=== PATIENT | female | born 1965 ===

== ENCOUNTER 2021-11-03 17:43 | Inpatient (IN) | payer MEDICAID, OTHER, SELFPAY ==
[2021-11-03 17:51] VITALS: BP 141/76; BP 154/92; PULSE 69; PULSE 74; RESP 18; TEMP 36.8; O2SAT 97; BMI 33.2
--- NOTE | 2021-11-03 18:28 | ED.PSYCH ---
HPI - Psych General Chief Complaint: Psychiatric Symptoms Stated Complaint: CRISIS, SI Time Seen by Provider: 11/03/21 18:03 Source: patient and EMS Mode of arrival: EMS Limitations: no limitations History of Present Illness HPI Narrative: 56-year-old female history of anxiety, depression bipolar disorder here with reports of feeling anxious and depressed and suicidal with no plan today. Patient tells me she has a therapist. She does not have a psychiatrist. She tells me she has taken medications in the past but does not like them due to side effects and so she does not want to take medication. She denies any homicidal ideations or hallucinations. No substance use. No physical complaints. Related Data Allergies Allergy/AdvReac Type Severity Reaction Status Date / Time No Known Allergies Allergy Unverified 01/21/20 16:03 loratadine AdvReac Unknown leg Verified 10/16/17 00:00 numbness/heaviness Review of Systems Review of Systems: Yes all other systems are reviewed and are negative Constitutional: Constitutional: Reports no additional constitutional complaints, Denies body ache(s), Denies chills, Denies fever(s), Denies headache(s) and Denies weakness Eyes: Eyes: Reports no additional eye complaints and Denies change in vision ENT: Reports system reviewed and no additional complaints, except as documented, Denies dizziness, Denies headache(s), Denies nasal congestion, Denies nasal discharge and Denies neck pain Cardiovascular: Cardiovascular: Reports no additional cardiovascular complaints, Denies chest pain, Denies leg edema and Denies dyspnea Respiratory: Respiratory: Reports no additional respiratory complaints, Denies cough and Denies dyspnea Gastrointestinal: Gastrointestinal: Reports no additional gastrointestinal complaints, Denies abdominal pain, Denies diarrhea, Denies nausea and Denies vomiting Genitourinary: Genitourinary: Reports no additional female genitourinary complaints and Denies urinary incontinence Musculoskeletal: Musculoskeletal: Reports no additional musculoskeletal complaints, Denies back pain, Denies arthralgias, Denies joint swelling, Denies neck pain, Denies numbness and Denies tingling Integumentary/Breasts: Skin/Breast: Reports system reviewed and no additional complaints, except as docu and Denies rash Neurologic: Reports system reviewed and no additional complaints, except as documented, Denies Abnormal speech present, Denies dizziness, Denies headache(s), Denies numbness, Denies tingling and Denies weakness Psychiatric: Psychiatric: Reports anxiety, Reports depression and Reports suicidal ideation [facility] Past Medical History Attestation statement: The following information was validated with the patient. Source: old records reviewed and nursing notes reviewed Social History Social History Advance Directives: No Advance Directives Information Provided: No Physical Exam Vital Signs: Vital Signs: Last Vital Signs Temp 98.3 F 11/03/21 17:51 Pulse 74 11/03/21 17:51 Resp 18 11/03/21 17:51 BP 141/76 H 11/03/21 17:51 Pulse Ox 97 11/03/21 17:51 O2 Del Method 11/03/21 17:51 BMI result Body Mass Index 33.2 Const: General: cooperative, healthy appearing, comfortable and no acute distress Orientation/consciousness: patient oriented x3 Limitations: no limitations HEENT: Head: Yes normal to inspection Ears: hearing grossly normal bilaterally General nose exam: Normal external nose present Face and sinus: Yes normal facial exam Mouth: Normal oral and palatal mucosa present Throat: Yes posterior oropharynx normal Eyes: General: appearance normal, both eyes and all related structures Pupils: Equal, round and reactive pupils present Neck: Neck: Yes normal visual inspection Chest: Chest palpation & inspection: normal inspection of the chest Resp: Effort & Inspection: normal respiratory effort Auscultation: clear to auscultation bilaterally Cardio: Rate: regular rate Rhythm: regular rhythm Peripheral pulses: Peripheral pulses 2+ throughout GI: Inspection: Yes normal to inspection Palpation (GI): Soft to palpation and nontender Auscultation: normal bowel sounds Back/Spine/Pelvis: Thoracic/Lumbar Spine: thoracic and lumbar spine normal to inspection Skin: General skin exam: no rashes or lesions noted Neuro: General: patient oriented x3, no focal motor deficits and normal sensation to monofilament Cranial nerves: Yes CN's II-XII intact bilaterally and Yes Equal, round and reactive pupils present Cognition (Neuro): normal cognition Speech: No Abnormal speech present Gait exam (Neuro): Normal gait present Motor exam (neuro): 5/5 motor strength present throughout Extrem: General: Yes normal to inspection Course Course Course Narrative: reviewed labs which are unremarkable. Patient has no physical complaints. Plan is for inpatient bed search. Reevaluation(s) Reevaluation #1: patient is voluntary inpatient bed search. Placed in physician observation pending disposition MDM - Psych MDM Narrative Medical decision making narrative: 56-year-old female with a longstanding history of mental health not currently on any medications here with reports of anxiety, depression and suicidal thoughts with no plan. No physical complaints. No concern for acute ingestion or trauma. Will check labs, drug screen, COVID screen. Once medically cleared will need a crisis evaluation Medical Records Attestation: I reviewed the patient's medical records. Lab Data Attestation: I reviewed the patient's lab results. Result diagrams: 11/03/21 19:21 11/03/21 19:21 Labs: Lab Results 11/03/21 11/03/21 11/03/21 Range/Units 19:03 19:03 19:21 WBC 7.2 (4.8-10.8) X10*3/uL RBC 4.86 (4.20-5.50) X10*6/uL Hgb 13.3 (12.0-16.0) g/dl Hct 40.7 (37.0-47.0) % MCV 83.7 (80.0-98.0) fL MCH 27.4 (27.0-33.0) pg MCHC 32.7 (31.0-35.0) g/dl RDW 13.9 (11.0-16.0) % Plt Count 260 (160-400) X10*3/uL MPV 9.2 L (9.4-12.3) fL Immature Gran % (Auto) 0.1 (0.0-0.4) % Neut % (Auto) 66.9 (45-73) % Lymph % (Auto) 26.5 (20-40) % [place] % (Auto) 5.4 (2-11) % Eos % (Auto) 0.7 (0-4) % Baso % (Auto) 0.4 (0-2) % Lymph # (Auto) 1.9 (1.2-4.9) X10*3/uL [place] # (Auto) 0.4 (0.1-1.2) X10*3/uL Eos # (Auto) 0.1 (0.0-0.4) X10*3/uL Baso # (Auto) 0.0 (0.0-0.2) X10*3/uL Abs Immat Gran (auto) 0.01 (0.00-0.03) X10*3/uL Absolute Neuts (auto) 4.8 (2.0-8.3) x10*3/uL Absolute Nucleated RBC 0.000 (0.0-0.012) X10*3/uL Nucleated RBC % (auto) 0.0 (0.0-0.2) /100WBC Sodium (135-145) mmol/L Potassium (3.3-5.1) mmol/L Chloride (96-108) mmol/L Carbon Dioxide (22-29) mmol/L Anion Gap (12-20) BUN (9-16) mg/dL Creatinine (0.5-1.4) mg/dL Estim Creat Clear Calc Estimated GFR Random Glucose (60-115) mg/dL Calcium (8.4-10.2) mg/dL Total Bilirubin (0.0-1.0) mg/dL Direct Bilirubin (0.0-0.5) mg/dL AST (5-31) U/L ALT (0-31) U/L Alkaline Phosphatase (39-117) U/L Total Protein (6.5-8.0) g/dL Albumin (3.5-5.0) g/dL Urine Color YELLOW Urine Appearance HAZY Urine pH 6.0 (5.0-8.0) Ur Specific [place] >= 1.030 H (1.005-1.025) Urine Protein 3+ H (NEG-TRACE) MG/DL Urine Glucose (UA) NEG (NEG) MG/DL Urine Ketones 5 (NEG) MG/DL Urine Blood TRACE (NEG) Urine Nitrite NEG (NEG) Ur Leukocyte Esterase NEG (NEG) Urine RBC 1-4 (0) /HPF Urine WBC 0-2 (0-4) /HPF Ur Squamous Epith Cells 3+ /LPF Urine Bacteria TRACE /LPF Hyaline Casts 0-2 /LPF Urine Mucus 3+ /LPF Salicylates (15-30) mg/dL Urine Opiates Screen Not Detected (Not Detect) Urine Fentanyl Screen Not Detected (Not Detect) Acetaminophen (<30) mcg/mL Ur Barbiturates Screen Not Detected (Not Detect) Ur Phencyclidine Scrn Not Detected (Not Detect) Ur Amphetamines Screen Not Detected (Not Detect) U Benzodiazepines Scrn Not Detected (Not Detect) Urine Cocaine Screen Not Detected (Not Detect) U Marijuana (THC) Screen POSITIVE H (Not Detect) Ethyl Alcohol mg/dL COVID-19 ([facility]) (Negative) COVID-19 Clin [facility] 11/03/21 11/03/21 Range/Units 19:21 19:21 WBC (4.8-10.8) X10*3/uL RBC (4.20-5.50) X10*6/uL Hgb (12.0-16.0) g/dl Hct (37.0-47.0) % MCV (80.0-98.0) fL MCH (27.0-33.0) pg MCHC (31.0-35.0) g/dl RDW (11.0-16.0) % Plt Count (160-400) X10*3/uL MPV (9.4-12.3) fL Immature Gran % (Auto) (0.0-0.4) % Neut % (Auto) (45-73) % Lymph % (Auto) (20-40) % [place] % (Auto) (2-11) % Eos % (Auto) (0-4) % Baso % (Auto) (0-2) % Lymph # (Auto) (1.2-4.9) X10*3/uL [place] # (Auto) (0.1-1.2) X10*3/uL Eos # (Auto) (0.0-0.4) X10*3/uL Baso # (Auto) (0.0-0.2) X10*3/uL Abs Immat Gran (auto) (0.00-0.03) X10*3/uL Absolute Neuts (auto) (2.0-8.3) x10*3/uL Absolute Nucleated RBC (0.0-0.012) X10*3/uL Nucleated RBC % (auto) (0.0-0.2) /100WBC Sodium 143 (135-145) mmol/L Potassium 4.0 (3.3-5.1) mmol/L Chloride 108 (96-108) mmol/L Carbon Dioxide 25 (22-29) mmol/L Anion Gap 14 (12-20) BUN 14 (9-16) mg/dL Creatinine 0.74 (0.5-1.4) mg/dL Estim Creat Clear Calc 78.8 Estimated GFR > 60 Random Glucose 93 (60-115) mg/dL Calcium 9.1 (8.4-10.2) mg/dL Total Bilirubin 0.4 (0.0-1.0) mg/dL Direct Bilirubin 0.2 (0.0-0.5) mg/dL AST 24 (5-31) U/L ALT 27 (0-31) U/L Alkaline Phosphatase 130 H (39-117) U/L Total Protein 7.2 (6.5-8.0) g/dL Albumin 4.3 (3.5-5.0) g/dL Urine Color Urine Appearance Urine pH (5.0-8.0) Ur Specific [place] (1.005-1.025) Urine Protein (NEG-TRACE) MG/DL Urine Glucose (UA) (NEG) MG/DL Urine Ketones (NEG) MG/DL Urine Blood (NEG) Urine Nitrite (NEG) Ur Leukocyte Esterase (NEG) Urine RBC (0) /HPF Urine WBC (0-4) /HPF Ur Squamous Epith Cells /LPF Urine Bacteria /LPF Hyaline Casts /LPF Urine Mucus /LPF Salicylates < 5.0 L (15-30) mg/dL Urine Opiates Screen (Not Detect) Urine Fentanyl Screen (Not Detect) Acetaminophen < 1 (<30) mcg/mL Ur Barbiturates Screen (Not Detect) Ur Phencyclidine Scrn (Not Detect) Ur Amphetamines Screen (Not Detect) U Benzodiazepines Scrn (Not Detect) Urine Cocaine Screen (Not Detect) U Marijuana (THC) Screen (Not Detect) Ethyl Alcohol < 10 mg/dL COVID-19 ([facility]) Negative (Negative) COVID-19 Clin Com See Note Discharge Plan Discharge Clinical Impression: Depression Patient Disposition: Admitted As Inpatient
[2021-11-03 19:16] LABS: Appearance Urine HAZY; Color Urine YELLOW; Glucose Urine UA NEG (NEG); Leukocyte Esterase Urine NEG (NEG); Nitrite Urine NEG (NEG); Specific Gravity - Urine >= 1.030 (1.005-1.025); Urine Blood TRACE (NEG); Urine Ketones 5 MG/DL (NEG); Urine Protein 3+ MG/DL (NEG-TRACE)
[2021-11-03 19:21] LABS: Amphetamine Screen Urine Not Detected (Not Detect); Barbiturates, Urine Not Detected (Not Detect); Benzodiazepines Screen Urine Not Detected (Not Detect); Cannabinoid Screen Urine POSITIVE (Not Detect); Cocaine Screen Urine Not Detected (Not Detect); Fentanyl, urine Not Detected (Not Detect); Opiate Screen Urine Not Detected (Not Detect); Phencyclidine Screen Urine Not Detected (Not Detect)
[2021-11-03 19:22] LABS: Bacteria Urine TRACE /LPF; Hyaline Casts Urine 0-2 /LPF; Mucus Urine 3+ /LPF; Squamous Epithelial Cell Urine 3+ /LPF; WBC Urine 0-2 /HPF (0-4)
[2021-11-03 19:26] LABS: MANUAL DIFF FLAG NO
[2021-11-03 19:28] LABS: Basophils Percent Auto 0.4 % (0-2); Eosinophils Absolute Auto 0.1 X10*3/uL (0.0-0.4); Eosinophils Percent Auto 0.7 % (0-4); Hematocrit 40.7 % (37.0-47.0); Hemoglobin 13.3 g/dl (12.0-16.0); Imm Gran Abs Auto 0.01 X10*3/uL (0.00-0.03); Imm Gran Pct Auto 0.1 % (0.0-0.4); Lymphocytes Absolute Auto 1.9 X10*3/uL (1.2-4.9); Lymphocytes Percent Auto 26.5 % (20-40); Mean Corpuscular HGB Conc 32.7 g/dl (31.0-35.0); Mean Corpuscular Hemoglobin 27.4 pg (27.0-33.0); Mean Corpuscular Volume 83.7 fL (80.0-98.0); Mean Platelet Volume 9.2 fL (9.4-12.3); Monocytes Absolute Auto 0.4 X10*3/uL (0.1-1.2); Monocytes Percent Auto 5.4 % (2-11); Neutrophils Absolute Auto 4.8 x10*3/uL (2.0-8.3); Neutrophils Percent Auto 66.9 % (45-73); Platelet Count 260 X10*3/uL (160-400); Red Blood Count 4.86 X10*6/uL (4.20-5.50); Red Cell Distribution Width 13.9 % (11.0-16.0); White Blood Count 7.2 X10*3/uL (4.8-10.8)
[2021-11-03 19:45] LABS: COVID-19 Test Negative (Negative)
[2021-11-03 19:46] LABS: Acetaminophen LAB < 1 mcg/mL (<30); Alanine Aminotransferase 27 U/L (0-31); Albumin Level 4.3 g/dL (3.5-5.0); Alkaline Phosphatase 130 U/L (39-117); Anion Gap 14 (12-20); Aspartate Amino Transferase 24 U/L (5-31); Bilirubin Direct 0.2 mg/dL (0.0-0.5); Bilirubin Total 0.4 mg/dL (0.0-1.0); Blood Urea Nitrogen 14 mg/dL (9-16); Calcium 9.1 mg/dL (8.4-10.2); Carbon Dioxide 25 mmol/L (22-29); Chloride 108 mmol/L (96-108); Creatinine Clr Calc Pharmacy 78.8; Estimated Glomerular Filt Rate > 60; Ethanol < 10 mg/dL; Glucose Random 93 mg/dL (60-115); Salicylate < 5.0 mg/dL (15-30); Sodium 143 mmol/L (135-145); Total Protein 7.2 g/dL (6.5-8.0)
--- NOTE | 2021-11-04 | ECG_ITS ---
Test Reason : MEDICAL CLEAR Blood Pressure : / mmHG Vent. Rate : 055 BPM Atrial Rate : 055 BPM P-R Int : 150 ms QRS Dur : 100 ms QT Int : 464 ms P-R-T Axes : 031 041 022 degrees QTc Int : 443 ms Sinus bradycardia Minimal voltage criteria for LVH, may be normal variant ( [place] product ) Possible Inferior infarct (cited on or before 14-DEC-2009) Abnormal ECG When compared with ECG of 14-DEC-2009 02:00, No significant change was found Referred By: Annika Mcwilliams Electronically Signed By:BRANDON AMBROSIO
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
[2021-11-04 06:00] VITALS: BP 127/77; PULSE 59; TEMP 36.4; O2SAT 97
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
--- NOTE | 2021-11-04 17:44 | PC.NURSE ---
Pt signed a [address] Devin Snow and Jen Mckeon notified.
[2021-11-04 18:00] VITALS: BP 119/82; PULSE 89; RESP 16; TEMP 36.6; O2SAT 98
[2021-11-05 06:00] VITALS: BP 121/60; PULSE 58; TEMP 36.8; O2SAT 97
[2021-11-05 08:21] LABS: Cholesterol 232 mg/dL; HDL Cholesterol 46 mg/dL; LDL Cholesterol Calculated 133 mg/dl; Triglycerides 267 mg/dL
[2021-11-05 08:42] LABS: Free T4 (Free Thyroxine) 0.99 ng/dL (0.71-1.85)
[2021-11-05 08:46] LABS: Estimated Average Glucose 117 mg/dL; Hemoglobin A1c % 5.7 %
--- NOTE | 2021-11-05 12:02 | P.PNPSI_ITS ---
Subjective Subjective Date of Service: 11/05/21 Reason For Visit: depression, SI Subjective Notes: 3 Day Interim History: Reports today still feeling depressed and anxious at times. Still reports main stressors are family in nature. Is concerned regarding her pet dog. Aware of three-day notice process. A bit regarding medications and prefers not to start same currently. Denies SI today. No hallucinations. Sleep okay. Encouraging to spend time in the milieu. Side effects from medications: No Attending Groups: No Review of Systems Acute medical concerns: No Mental Status Exam Mental Status Exam Narrative: Hospital clothing. Pleasant. Self-care okay. Depressed. Denies current SI. Does feel hopeless and helpless and overwhelmed. No psychosis. No agitation or HI. Insight judgment okay Diagnostics Vital Signs (24Hr): Vital Signs - 24 hr 11/04/21 18:00 11/05/21 06:00 Temperature 97.8 F 98.3 F Pulse Rate 89 58 Respiratory Rate 16 Blood Pressure 119/82 121/60 Pulse Oximetry 98 97 Oxygen Delivery Method Room Air Room Air BMI result Body Mass Index 33.2 Labs Results: 11/03/21 19:21 11/03/21 19:21 Labs: Laboratory Results - last 48 hr 11/03/21 11/03/21 11/03/21 19:03 19:03 19:21 WBC 7.2 RBC 4.86 Hgb 13.3 Hct 40.7 MCV 83.7 MCH 27.4 MCHC 32.7 RDW 13.9 Plt Count 260 MPV 9.2 L Immature Gran % (Auto) 0.1 Neut % (Auto) 66.9 Lymph % (Auto) 26.5 [place] % (Auto) 5.4 Eos % (Auto) 0.7 Baso % (Auto) 0.4 Lymph # (Auto) 1.9 [place] # (Auto) 0.4 Eos # (Auto) 0.1 Baso # (Auto) 0.0 Abs Immat Gran (auto) 0.01 Absolute Neuts (auto) 4.8 Absolute Nucleated RBC 0.000 Nucleated RBC % (auto) 0.0 Sodium Potassium Chloride Carbon Dioxide Anion Gap BUN Creatinine Estim Creat Clear Calc Estimated GFR Random Glucose Estimat Average Glucose Hemoglobin A1c % Calcium Magnesium Total Bilirubin Direct Bilirubin AST ALT Alkaline Phosphatase Total Protein Albumin Triglycerides Cholesterol LDL Cholesterol, Calc HDL Cholesterol TSH Free T4 Urine Color YELLOW Urine Appearance HAZY Urine pH 6.0 Ur Specific [place] >= 1.030 H Urine Protein 3+ H Urine Glucose (UA) NEG Urine Ketones 5 Urine Blood TRACE Urine Nitrite NEG Ur Leukocyte Esterase NEG Urine RBC 1-4 Urine WBC 0-2 Ur Squamous Epith Cells 3+ Urine Bacteria TRACE Hyaline Casts 0-2 Urine Mucus 3+ Salicylates Urine Opiates Screen Not Detected Urine Fentanyl Screen Not Detected Acetaminophen Ur Barbiturates Screen Not Detected Ur Phencyclidine Scrn Not Detected Ur Amphetamines Screen Not Detected U Benzodiazepines Scrn Not Detected Urine Cocaine Screen Not Detected U Marijuana (THC) Screen POSITIVE H Ethyl Alcohol COVID-19 ([facility]) COVID-19 [facility] Com 11/03/21 11/03/21 11/05/21 19:21 19:21 07:49 WBC RBC Hgb Hct MCV MCH MCHC RDW Plt Count MPV Immature Gran % (Auto) Neut % (Auto) Lymph % (Auto) [place] % (Auto) Eos % (Auto) Baso % (Auto) Lymph # (Auto) [place] # (Auto) Eos # (Auto) Baso # (Auto) Abs Immat Gran (auto) Absolute Neuts (auto) Absolute Nucleated RBC Nucleated RBC % (auto) Sodium 143 Potassium 4.0 Chloride 108 Carbon Dioxide 25 Anion Gap 14 BUN 14 Creatinine 0.74 Estim Creat Clear Calc 78.8 Estimated GFR > 60 Random Glucose 93 Estimat Average Glucose 117 Hemoglobin A1c % 5.7 Calcium 9.1 Magnesium Total Bilirubin 0.4 Direct Bilirubin 0.2 AST 24 ALT 27 Alkaline Phosphatase 130 H Total Protein 7.2 Albumin 4.3 Triglycerides Cholesterol LDL Cholesterol, Calc HDL Cholesterol TSH Free T4 Urine Color Urine Appearance Urine pH Ur Specific [place] Urine Protein Urine Glucose (UA) Urine Ketones Urine Blood Urine Nitrite Ur Leukocyte Esterase Urine RBC Urine WBC Ur Squamous Epith Cells Urine Bacteria Hyaline Casts Urine Mucus Salicylates < 5.0 L Urine Opiates Screen Urine Fentanyl Screen Acetaminophen < 1 Ur Barbiturates Screen Ur Phencyclidine Scrn Ur Amphetamines Screen U Benzodiazepines Scrn Urine Cocaine Screen U Marijuana (THC) Screen Ethyl Alcohol < 10 COVID-19 ([facility]) Negative COVID-19 Clin Com See Note 11/05/21 07:49 WBC RBC Hgb Hct MCV MCH MCHC RDW Plt Count MPV Immature Gran % (Auto) Neut % (Auto) Lymph % (Auto) [place] % (Auto) Eos % (Auto) Baso % (Auto) Lymph # (Auto) [place] # (Auto) Eos # (Auto) Baso # (Auto) Abs Immat Gran (auto) Absolute Neuts (auto) Absolute Nucleated RBC Nucleated RBC % (auto) Sodium Potassium Chloride Carbon Dioxide Anion Gap BUN Creatinine Estim Creat Clear Calc Estimated GFR Random Glucose Estimat Average Glucose Hemoglobin A1c % Calcium Magnesium 2.0 Total Bilirubin Direct Bilirubin AST ALT Alkaline Phosphatase Total Protein Albumin Triglycerides 267 Cholesterol 232 LDL Cholesterol, Calc 133 HDL Cholesterol 46 TSH 0.70 Free T4 0.99 Urine Color Urine Appearance Urine pH Ur Specific [place] Urine Protein Urine Glucose (UA) Urine Ketones Urine Blood Urine Nitrite Ur Leukocyte Esterase Urine RBC Urine WBC Ur Squamous Epith Cells Urine Bacteria Hyaline Casts Urine Mucus Salicylates Urine Opiates Screen Urine Fentanyl Screen Acetaminophen Ur Barbiturates Screen Ur Phencyclidine Scrn Ur Amphetamines Screen U Benzodiazepines Scrn Urine Cocaine Screen U Marijuana (THC) Screen Ethyl Alcohol COVID-19 ([facility]) COVID-19 Clin Com Medications Medications Current Medications Acetaminophen (Acetaminophen 325 Mg Tablet) 650 mg PO Q6H PRN PRN Reason: Headache/Pain Mild Scale (1-3) Al Hydroxide/Mg Hydroxide (Magnesium Hydrox/Alum Hydrox 30 Ml Oral.Susp) 30 ml PO Q6H PRN PRN Reason: Heartburn/Nausea Hydroxyzine HCl (Hydroxyzine Hcl 25 Mg Tablet) 25 mg PO Q6H PRN PRN Reason: Anxiety Magnesium Hydroxide (Milk Of Magnesia 30 Ml Oral.Susp) 30 ml PO DAILY PRN PRN Reason: Constipation Pharmacy Consult (Consult Rx Perform Med Rec) 1 each MISCELLANE ONCE PRN PRN Reason: Consult order Trazodone HCl (Trazodone Hcl 50 Mg Tablet) 50 mg PO BEDTIME PRN PRN Reason: Insomnia Allergies Allergies Allergy/AdvReac Type Severity Reaction Status Date / Time No Known Allergies Allergy Unverified 01/21/20 16:03 loratadine AdvReac Unknown leg Verified 10/16/17 00:00 numbness/heaviness Assessment & Plan Assessment & Plan (1) Major depression: Status: Acute Code(s): F32.9 - Major depressive disorder, single episode, unspecified Assessment and Plan: Presents with major depressive disorder with recent SI. Also psychosocial stressors. Has a therapist. Very reluctant regarding medications. Is open to considering Zoloft. 11/05/2021: Prefers not to start medications currently. Encouraging to spend time in the milieu and groups. Three day notice submitted. I spent minutes with the patient and/or on the patient floor today, greater than?50% of which was spent counseling/coordinating care. Reason for contiued inpatient stay Substantial Risk for: harm to self
[2021-11-05 18:00] VITALS: BP 128/82; PULSE 91; RESP 16; TEMP 36.8; O2SAT 99
[2021-11-06 09:40] VITALS: BP 127/58; PULSE 55; RESP 18; TEMP 37.2; O2SAT 97
--- NOTE | 2021-11-06 13:25 | PM.PSYDC ---
DS: Providers Provider Date of Service: 11/06/21 Date of admission: 11/04/21 01:35 Date of discharge: 11/06/21 Primary care physician: Unknown Physician DS: Diagnosis Discharge Diagnosis (1) Major depression: Status: Acute DS: Medications Discharge Medications Home Medications: Home Medications Medication Instructions Recorded Confirmed No Known Home Meds 11/03/21 11/03/21 Mental Status Exam Mental Status Exam Narrative: Hospital clothing. Pleasant. Self-care okay. Less depressed. Denies current SI. Less hopeless and overhwlemed. No psychosis. No agitation or HI. Insight judgment okay Data Data Completed and Pending Completed studies during hospitalization [Text1]: 11/03/21 11/03/21 11/03/21 19:03 19:03 19:21 WBC 7.2 RBC 4.86 Hgb 13.3 Hct 40.7 MCV 83.7 MCH 27.4 MCHC 32.7 RDW 13.9 Plt Count 260 MPV 9.2 L Immature Gran % (Auto) 0.1 Neut % (Auto) 66.9 Lymph % (Auto) 26.5 [place] % (Auto) 5.4 Eos % (Auto) 0.7 Baso % (Auto) 0.4 Lymph # (Auto) 1.9 [place] # (Auto) 0.4 Eos # (Auto) 0.1 Baso # (Auto) 0.0 Abs Immat Gran (auto) 0.01 Absolute Neuts (auto) 4.8 Absolute Nucleated RBC 0.000 Nucleated RBC % (auto) 0.0 Sodium Potassium Chloride Carbon Dioxide Anion Gap BUN Creatinine Estim Creat Clear Calc Estimated GFR Random Glucose Estimat Average Glucose Hemoglobin A1c % Calcium Magnesium Total Bilirubin Direct Bilirubin AST ALT Alkaline Phosphatase Total Protein Albumin Triglycerides Cholesterol LDL Cholesterol, Calc HDL Cholesterol Vitamin B12 Folate TSH Free T4 Urine Color YELLOW Urine Appearance HAZY Urine pH 6.0 Ur Specific [place] >= 1.030 H Urine Protein 3+ H Urine Glucose (UA) NEG Urine Ketones 5 Urine Blood TRACE Urine Nitrite NEG Ur Leukocyte Esterase NEG Urine RBC 1-4 Urine WBC 0-2 Ur Squamous Epith Cells 3+ Urine Bacteria TRACE Hyaline Casts 0-2 Urine Mucus 3+ Salicylates Urine Opiates Screen Not Detected Urine Fentanyl Screen Not Detected Acetaminophen Ur Barbiturates Screen Not Detected Ur Phencyclidine Scrn Not Detected Ur Amphetamines Screen Not Detected U Benzodiazepines Scrn Not Detected Urine Cocaine Screen Not Detected U Marijuana (THC) Screen POSITIVE H Ethyl Alcohol COVID-19 ([facility]) COVID-19 Clin Com 11/03/21 11/03/21 11/05/21 19:21 19:21 07:49 WBC RBC Hgb Hct MCV MCH MCHC RDW Plt Count MPV Immature Gran % (Auto) Neut % (Auto) Lymph % (Auto) [place] % (Auto) Eos % (Auto) Baso % (Auto) Lymph # (Auto) [place] # (Auto) Eos # (Auto) Baso # (Auto) Abs Immat Gran (auto) Absolute Neuts (auto) Absolute Nucleated RBC Nucleated RBC % (auto) Sodium 143 Potassium 4.0 Chloride 108 Carbon Dioxide 25 Anion Gap 14 BUN 14 Creatinine 0.74 Estim Creat Clear Calc 78.8 Estimated GFR > 60 Random Glucose 93 Estimat Average Glucose 117 Hemoglobin A1c % 5.7 Calcium 9.1 Magnesium Total Bilirubin 0.4 Direct Bilirubin 0.2 AST 24 ALT 27 Alkaline Phosphatase 130 H Total Protein 7.2 Albumin 4.3 Triglycerides Cholesterol LDL Cholesterol, Calc HDL Cholesterol Vitamin B12 Folate TSH Free T4 Urine Color Urine Appearance Urine pH Ur Specific [place] Urine Protein Urine Glucose (UA) Urine Ketones Urine Blood Urine Nitrite Ur Leukocyte Esterase Urine RBC Urine WBC Ur Squamous Epith Cells Urine Bacteria Hyaline Casts Urine Mucus Salicylates < 5.0 L Urine Opiates Screen Urine Fentanyl Screen Acetaminophen < 1 Ur Barbiturates Screen Ur Phencyclidine Scrn Ur Amphetamines Screen U Benzodiazepines Scrn Urine Cocaine Screen U Marijuana (THC) Screen Ethyl Alcohol < 10 COVID-19 ([facility]) Negative COVID-19 Clin Com See Note 11/05/21 11/05/21 07:49 07:49 WBC RBC Hgb Hct MCV MCH MCHC RDW Plt Count MPV Immature Gran % (Auto) Neut % (Auto) Lymph % (Auto) [place] % (Auto) Eos % (Auto) Baso % (Auto) Lymph # (Auto) [place] # (Auto) Eos # (Auto) Baso # (Auto) Abs Immat Gran (auto) Absolute Neuts (auto) Absolute Nucleated RBC Nucleated RBC % (auto) Sodium Potassium Chloride Carbon Dioxide Anion Gap BUN Creatinine Estim Creat Clear Calc Estimated GFR Random Glucose Estimat Average Glucose Hemoglobin A1c % Calcium Magnesium 2.0 Total Bilirubin Direct Bilirubin AST ALT Alkaline Phosphatase Total Protein Albumin Triglycerides 267 Cholesterol 232 LDL Cholesterol, Calc 133 HDL Cholesterol 46 Vitamin B12 Pending Folate Pending TSH 0.70 Free T4 0.99 Urine Color Urine Appearance Urine pH Ur Specific [place] Urine Protein Urine Glucose (UA) Urine Ketones Urine Blood Urine Nitrite Ur Leukocyte Esterase Urine RBC Urine WBC Ur Squamous Epith Cells Urine Bacteria Hyaline Casts Urine Mucus Salicylates Urine Opiates Screen Urine Fentanyl Screen Acetaminophen Ur Barbiturates Screen Ur Phencyclidine Scrn Ur Amphetamines Screen U Benzodiazepines Scrn Urine Cocaine Screen U Marijuana (THC) Screen Ethyl Alcohol COVID-19 ([facility]) COVID-19 Clin Com DS: Summary Hospital Course Hospital Course: Much less depressed and anxious, with main stressors are family in nature.? Gradually engaged in milieu more and preferred talking over medications, so no meds started. Eager fro DC and 3 day notice submitted and no grounds for involuntary retention. Already has an established therapist in the community. Status at Discharge Functional status at discharge: independent ambulation Overall status at discharge: patient is back to baseline Time Spent with Patient Time attestation: Total time spent providing and/or coordinating discharge services: Time spent: Less than 30 minutes Discharge Plan Discharge Patient Disposition: Home, Self-Care Discharge Diagnosis: depression Referrals: CHASE NORMAN, THERAPIST [Other] - 1 Week (PLEASE CALL FOR NEXT APPOINTMENT) Physician,Unknown J [Primary Care Provider] - 1 Week Discharge Medications: No Action No Known Home Meds Discharge Orders: Discharge Order (Routine); Ordered 11/06/21 Ordered By: Devin Snow Diet: Regular diet Activity on Discharge: No Restrictions Stand Alone Forms: Patient Portal Discharge page Care Plan Goals: continue therapy Health Concerns: none Plan of Treatment: continue therapy Assessment: stable for discharge
--- NOTE | 2021-11-06 14:29 | PC.ADMIT ---
Pt verbalized understanding of discharge instructions and follow up. NAD noted on dispo. Pt denies si,hi at time of discharge.
[2021-11-07 06:27] LABS: Folate 15.1 ng/mL (> or = 4.0); Vitamin B12 566 pg/mL (200-900)
== END 2021-11-06 14:28 | disposition home or self-care (01) | DRG 754 ==
LOC: HO.ED 20:20 → HO.PM5 11-04 01:53
PROVIDERS: Nurse Practitioner Family; Registered Nurse; Admitting Provider Psychiatry & Neurology Psychiatry; Emergency Provider Emergency Medicine; Visit Provider Psychiatry & Neurology Psychiatry
DX: F32.9 Major depressive disorder, single episode, unspecified (principal); R45.851 Suicidal ideations; Z20.822 Contact with and (suspected) exposure to COVID-19
CPT/HCPCS: 36415; 80048; 80061; 80076; 80143; 80179; 80307; 81001; 82077; 82607; 82746; 83036; 83735; 84439; 84443; 85025; 87635; 93005; 99285

== ENCOUNTER 2023-08-15 14:49 | Outpatient (REF) | payer MEDICAID, SELFPAY ==
--- NOTE | ~2023-08-15 | XR_ITS ---
EXAMINATION: BILATERAL HANDS AND LEFT SHOULDER CLINICAL INFORMATION: Bilateral hand pain and swelling along with left shoulder pain COMPARISON: Left shoulder and bilateral hands 10/24/2015 TECHNIQUE: 5 views left shoulder, 3 views each hand FINDINGS: Left shoulder: Some mild degenerative changes are seen at the greater tuberosity with some osteophyte formation. Minimal degenerative changes are seen at the AC joint. Both of these findings have progressed slightly since 2016. The glenohumeral joint appears normal. No fractures or subluxations. Right hand: Compared with the 2016 study there's been marked progression of degenerative changes with new marked changes seen at the first CMC joint and progression of disease at all of the DIP joints most marked in the second and third digits. No fractures, subluxations or chondrocalcinosis. Left hand: There are mild to moderate degenerative changes seen at the first CMC joint, new when compared to the 2016 study. There is been marked progression of arthritic changes seen at the DIP joints, most marked in the second digit with exuberant osteophytes and some periarticular calcification. No acute fractures or subluxations. XR/XR shoulder LT min 2V IMPRESSION: 1. Mild degenerative changes left shoulder. 2. Marked progression of degenerative changes in both hands as described above.
--- NOTE | ~2023-08-15 | XR_ITS ---
EXAMINATION: BILATERAL HANDS AND LEFT SHOULDER CLINICAL INFORMATION: Bilateral hand pain and swelling along with left shoulder pain COMPARISON: Left shoulder and bilateral hands 10/24/2015 TECHNIQUE: 5 views left shoulder, 3 views each hand FINDINGS: Left shoulder: Some mild degenerative changes are seen at the greater tuberosity with some osteophyte formation. Minimal degenerative changes are seen at the AC joint. Both of these findings have progressed slightly since 2016. The glenohumeral joint appears normal. No fractures or subluxations. Right hand: Compared with the 2016 study there's been marked progression of degenerative changes with new marked changes seen at the first CMC joint and progression of disease at all of the DIP joints most marked in the second and third digits. No fractures, subluxations or chondrocalcinosis. Left hand: There are mild to moderate degenerative changes seen at the first CMC joint, new when compared to the 2016 study. There is been marked progression of arthritic changes seen at the DIP joints, most marked in the second digit with exuberant osteophytes and some periarticular calcification. No acute fractures or subluxations. XR/XR hand LT min 3V IMPRESSION: 1. Mild degenerative changes left shoulder. 2. Marked progression of degenerative changes in both hands as described above.
--- NOTE | ~2023-08-15 | XR_ITS ---
EXAMINATION: BILATERAL HANDS AND LEFT SHOULDER CLINICAL INFORMATION: Bilateral hand pain and swelling along with left shoulder pain COMPARISON: Left shoulder and bilateral hands 10/24/2015 TECHNIQUE: 5 views left shoulder, 3 views each hand FINDINGS: Left shoulder: Some mild degenerative changes are seen at the greater tuberosity with some osteophyte formation. Minimal degenerative changes are seen at the AC joint. Both of these findings have progressed slightly since 2016. The glenohumeral joint appears normal. No fractures or subluxations. Right hand: Compared with the 2016 study there's been marked progression of degenerative changes with new marked changes seen at the first CMC joint and progression of disease at all of the DIP joints most marked in the second and third digits. No fractures, subluxations or chondrocalcinosis. Left hand: There are mild to moderate degenerative changes seen at the first CMC joint, new when compared to the 2016 study. There is been marked progression of arthritic changes seen at the DIP joints, most marked in the second digit with exuberant osteophytes and some periarticular calcification. No acute fractures or subluxations. XR/XR hand RT min 3V IMPRESSION: 1. Mild degenerative changes left shoulder. 2. Marked progression of degenerative changes in both hands as described above.
== END 2023-08-15 14:50 | disposition home or self-care (01) ==
LOC: HO.HHCX 14:49
PROVIDERS: Visit Provider Pediatrics
DX: M25.512 Pain in left shoulder (principal); M20.002 Unspecified deformity of left finger(s); M20.001 Unspecified deformity of right finger(s); R60.0 Localized edema
CPT/HCPCS: 73030; 73130

== ENCOUNTER 2023-10-15 14:51 | Outpatient (REF) | payer MEDICAID, SELFPAY ==
[2023-10-15 16:43] LABS: Estimated Average Glucose 117 mg/dL; Hemoglobin A1c % 5.7 % (<6.0)
[2023-10-15 16:51] LABS: Alanine Aminotransferase 17 U/L (0-31); Albumin Level 4.3 g/dL (3.5-5.0); Alkaline Phosphatase 119 U/L (39-117); Anion Gap 13 (12-20); Aspartate Amino Transferase 15 U/L (5-31); Bilirubin Total 0.3 mg/dL (0.0-1.0); Blood Urea Nitrogen 17 mg/dL (9-16); Calcium 9.5 mg/dL (8.4-10.2); Carbon Dioxide 28 mmol/L (22-29); Chloride 105 mmol/L (96-108); Cholesterol 210 mg/dL (<200); Estimated Glomerular Filt Rate > 60; Glucose Random 92 mg/dL (60-115); HDL Cholesterol 53 mg/dL (>40); LDL Cholesterol Calculated 121 mg/dL (<100); Potassium 3.8 mmol/L (3.3-5.1); Sodium 142 mmol/L (135-145); Total Protein 7.5 g/dL (6.5-8.0); Triglycerides 180 mg/dL (<150)
[2023-10-15 16:56] LABS: TSH reflex Free T4 0.93 uIU/mL (0.32-4.0)
[2023-10-15 17:59] LABS: CT PCR NOT DETECTED (Not Detect.); NG PCR NOT DETECTED (Not Detect.)
[2023-10-15 20:33] LABS: Reflex LDLD? No
[2023-10-18 04:44] LABS: HPV mRNA E6/E7 rflx Not Detected (Not Detected)
== END 2023-10-15 14:52 | disposition home or self-care (01) ==
LOC: HO.HHCL 14:51
PROVIDERS: Visit Provider Family Medicine
DX: Z01.419 Encounter for gynecological examination (general) (routine) without abnormal findings (principal); E66.3 Overweight
CPT/HCPCS: 0353U; 80053; 80061; 83036; 84443; 87624; 88142

== ENCOUNTER 2023-10-31 16:03 | Outpatient (REF) | payer MEDICAID, SELFPAY ==
[2023-10-31 17:53] LABS: MANUAL DIFF FLAG NO
[2023-10-31 18:05] LABS: C Reactive Protein 1.38 mg/dL (< or = 0.50); Uric Acid 4.7 mg/dL (2.4-5.7)
[2023-10-31 18:06] LABS: Basophils Percent Auto 0.5 % (0-2); Eosinophils Absolute Auto 0.1 X10*3/uL (0.0-0.4); Eosinophils Percent Auto 1.2 % (0-4); Hematocrit 38.9 % (37.0-47.0); Hemoglobin 12.6 g/dl (12.0-16.0); Imm Gran Abs Auto 0.02 X10*3/uL (0.00-0.03); Imm Gran Pct Auto 0.3 % (0.0-0.4); Lymphocytes Absolute Auto 1.5 X10*3/uL (1.2-4.9); Lymphocytes Percent Auto 26.8 % (20-40); Mean Corpuscular HGB Conc 32.4 g/dl (31.0-35.0); Mean Corpuscular Hemoglobin 27.6 pg (27.0-33.0); Mean Corpuscular Volume 85.3 fL (80.0-98.0); Mean Platelet Volume 10.7 fL (9.4-12.3); Monocytes Absolute Auto 0.5 X10*3/uL (0.1-1.2); Neutrophils Absolute Auto 3.6 x10*3/uL (2.0-8.3); Neutrophils Percent Auto 63.2 % (45-73); Platelet Count 239 X10*3/uL (160-400); Red Blood Count 4.56 X10*6/uL (4.20-5.50); Red Cell Distribution Width 13.8 % (11.0-16.0); White Blood Count 5.7 X10*3/uL (4.8-10.8)
[2023-10-31 18:12] LABS: Rheumatoid Factor < 13.0 IU/mL (<15.0)
[2023-10-31 21:02] LABS: Erythrocyte Sedimentation Rate 23 MM/HR (0-20)
== END 2023-10-31 16:04 | disposition home or self-care (01) ==
LOC: HO.HHCL 16:03
PROVIDERS: Visit Provider Family Medicine
DX: M12.9 Arthropathy, unspecified (principal)
CPT/HCPCS: 36415; 84550; 85025; 85652; 86140; 86431

== ENCOUNTER 2024-02-20 09:10 | Outpatient (AMB) | payer MEDICAID, SELFPAY ==
--- NOTE | 2024-02-20 09:21 | MHC.OFFVIS ---
Vital Signs 02/20/24 09:25 Height 4 ft 11 in Weight 155 lb BMI 31.3 BP 145/71 H Blood Pressure Location Rt brachial Position Sitting Pulse 53 Intake Visit Reasons: colonoscopy Intake Note: Patient here for colonoscopy consult. Last colonoscopy with Dr. Lawson in 2018. Parts Finisher Required: No Accompanied by: Self / Same As Patient Allergies No Known Allergies Allergy (Unverified 02/20/24 09:26) Medication List - Last Reconciled 02/20/24 by Moises Lawson MD acetaminophen 1,000 mg PO Q8H PRN albuterol sulfate 90 mcg/actuation (Ventolin HFA) 2 puffs inhalation Q4H PRN ibuprofen 600 mg PO Q8H PRN melatonin 3 mg PO DAILY PRN HPI HPI colonoscopy : Details: 58-year-old female here for a follow-up colonoscopy. Her last colonoscopy was in 2018. At that time, multiple polyps removed. She had tubular adenomas as well as hyper plastic polyps then on pathology. She was recommended to undergo another colonoscopy in 5 years She denies any significant GI complaints. She denies any family history of colon cancer. [facility] Medical History (Updated 02/20/24 @ 09:41 by Moises Lawson MD) History of adenomatous polyp of colon Major depressive disorder Nicotine dependence, cigarettes, uncomplicated Tubular adenoma of colon (~2018) Surgical History History of colonoscopy Family History Son Overdose Sister Overdose Social History Household Members: Children Housing: House Do you presently have visiting nurse or other home services: No Patient Tobacco Use Status: Never used Tobacco Cigarettes Per Day: 10 Second Hand Smoke Exposure: No Substance Use Type: Marijuana service: No Sexual orientation: Straight/Heterosexual Review of Systems Const Denies chills and Denies fever(s) Card Denies chest pain, Denies dyspnea and Denies dyspnea on exertion Resp Denies cough, Denies dyspnea and Denies dyspnea on exertion GI Denies hematochezia and Denies change in bowel habits Denies hematuria Musc Denies back pain and Denies limited range of motion Neuro Denies focal weakness and Denies convulsions Psych Denies depression and Denies mood swings Physical Exam Vital Signs: Last Vital Signs Pulse 53 02/20/24 09:25 BP 145/71 H 02/20/24 09:25 BMI result Body Mass Index 31.3 Const General: comfortable and no acute distress Orientation/consciousness: patient oriented x3 Neck Neck: Yes no lymphadenopathy Resp Auscultation: clear to auscultation bilaterally Cardio Rhythm: regular rhythm GI Palpation (GI): Soft to palpation, nontender and no guarding Neuro General: patient oriented x3 Assessment & Plan Assessment & Plan (1) History of adenomatous polyp of colon: Code(s): Z86.0101 - Personal history of adenomatous and serrated colon polyps Category: Medical Plan: She has a history of a tubular adenoma in the past. I explained to her the technique of colonoscopy. I reviewed the risks including but not limited to bleeding and perforation, as well as the benefits and alternatives. She says she understands and agrees to proceed. Coding Level of Care Code New Pt Level 3 (79422) Diagnoses History of adenomatous polyp of colon Z86.0101
[2024-02-20 09:25] VITALS: BP 145/71; PULSE 53; BMI 31.3
== END 2024-02-20 09:50 | disposition home or self-care (01) ==
PROVIDERS: PCP Family Medicine; Visit Provider Surgery
DX: Z86.0101 Personal history of adenomatous and serrated colon polyps (principal)
CPT/HCPCS: 99203

== ENCOUNTER → 2024-02-20 09:10 | Outpatient (BNVA) | payer MEDICAID, SELFPAY | PROVIDERS: PCP Family Medicine; Visit Provider Surgery | DX: Z01.818 Encounter for other preprocedural examination (principal); Z86.0101 Personal history of adenomatous and serrated colon polyps | CPT/HCPCS: 99202 ==

== ENCOUNTER 2024-04-24 17:42 | Outpatient (REF) | payer MEDICAID, SELFPAY ==
[2024-04-25 12:20] LABS: Adenovirus PCR Not Detected (Not Detect.); Bordetella parapertussis PCR Not Detected (Not Detect.); Bordetella pertussis PCR Not Detected (Not Detect.); Chlamydia pneumoniae PCR Not Detected (Not Detect.); Coronavirus 229E PCR Not Detected (Not Detect.); Coronavirus HKU1 PCR Not Detected (Not Detect.); Coronavirus NL63 PCR Not Detected (Not Detect.); Coronavirus OC43 PCR Not Detected (Not Detect.); Human metapneumovirus PCR Not Detected (Not Detect.); Influenza A PCR Not Detected (Not Detect.); Influenza B PCR Not Detected (Not Detect.); Mycoplasma pneumoniae PCR Not Detected (Not Detect.); Parainfluenza 1 PCR Not Detected (Not Detect.); Parainfluenza 2 PCR Not Detected (Not Detect.); Parainfluenza 3 PCR Not Detected (Not Detect.); Parainfluenza 4 PCR Not Detected (Not Detect.); RSV PCR Not Detected (Not Detect.); Rhino/Enterovirus PCR Not Detected (Not Detect.)
[2024-04-25 12:46] LABS: SARS-CoV-2 PCR Not Detected (Not Detect.)
== END 2024-04-24 17:43 | disposition home or self-care (01) ==
LOC: HO.HHCLNP 17:42
PROVIDERS: Visit Provider Family Medicine
DX: R05.2 Subacute cough (principal)
CPT/HCPCS: 87633

== ENCOUNTER 2024-05-27 11:47 | Outpatient (REF) | payer MEDICAID, SELFPAY ==
--- NOTE | ~2024-05-27 | XR_ITS ---
EXAMINATION: XR CHEST CLINICAL INFORMATION: subacute cough COMPARISON: 02/20/2017. TECHNIQUE: 2 views of the chest were obtained. FINDINGS: The cardiac, hilar, and mediastinal contours are normal. The lungs are clear bilaterally. There is no pneumothorax or pleural effusion. There is no focal osseous or soft tissue abnormality. XR/XR chest 2V IMPRESSION: Normal chest. Electronically signed by: Matthieu Mitchell MD 05/27/2024 01:27 PM DENISE
--- OUTSIDE RECORDS SUMMARY | 2024-05-27 13:49 | XMS_ITS | Encounter Summary ---
Author Organization [employer] Address [address] [facility] [address] [place] [address] Care Team Providers Care Branch Service Representative Name Role Phone Ashley Mendoza MD Primary Care Provider [phone] Reason for Visit * Reason Comments Cough Encounter Details Date Type Department Care Team ([facility] Contact Info) Description 05/27/2024 11:00 AM EST Office Visit [facility] [address] [place] [address] Kyaw Rubi MD [address] [place] [address] Subacute cough (Primary Dx); Elevated blood pressure reading in office without diagnosis of hypertension; Tobacco use; Viral URI Social History Tobacco Use Types Packs/Day Years Used Date Smoking Tobacco: Every Day Cigarettes 0.3 39.1 Started: 1985 Passive Smoke Exposure: Never Smokeless Tobacco: Former Alcohol Use Standard Drinks/Week Comments Defer 0 (1 standard drink = 0.6 oz pur e alcohol) Housing Stability Answer Date Recorded What is your housing situation today? I have marilee linares 10/15/[address] you li ve. Do you have problems with any of the following? None of the above 10/15/2023 Food Insecurity Answer Date Recorded Within the past 12 months, y ou worried that your food would run out before you got money to buy more: Never True 10/15/2023 Within the past 12 months,th e food you bought just didn't last and you didn't have enough money to get more: Never True 03/2024 Transportation Answer Date Recorded In the past 12 months, has l ack of transportation kept you from medical appts, meetings, work or from getting things needed for daily living? No 10/15/2023 Utilities Answer Date Recorded In the past 12 months, has t he electric, gas, oil or water company threatened to shut off services in your home? No 10/15/2023 Depression Answer Date Recorded Patient Health Questionnaire-2 Score 3 10/15/2023 Comments Unknown Sex and Gender Information Value Date Recorded Sex Assigned at Female 03/05/2022 10:14 AM EDT Legal Sex Female 10:14 AM EDT Gender Identity Female 03/05/2022 10:14 AM EDT Sexual Orientation Don't know 03/05/2022 10 :14 AM EDT documented as of this encounter Last Filed Vital Signs Vital Sign Reading Time Taken Comments Blood Pressure 159/84 05/27/2024 10:39 AM EST Pulse 63 05/27/2024 10:39 AM EST Temperature 36.7 ??C (98.1 ??F) 05/27/2024 10:[address] Respiratory Rate 18 05/27/2024 10:39 AM EST Oxygen Saturation 97% 05/27/2024 10:39 AM EST Inhaled Oxygen Concentration - - Weight 70.8 kg (156 lb) 05/27/2024 10:39 AM EST Height - - Body Mass Index 32.6 04/24/2024 9:57 AM EST documented in this encounter Progress Notes * Kyaw Rubi MD - 05/27/2024 11:00 AM EST Subjective Patient ID: Gricel Joya is a 59 y.o. female. HPI Gricel states that she has had a cough productive of scant white sputum for 7 weeks. Was seen in [facility] 04/24/2024, had negative Covid, Flu and Respiratory Panel PCR testing. Diagnosed with subacute cough, wheezing when phlegm gets caught in my throat . Prescribed Zithromax. She returns to [facility] today due to persistent cough. No fever, chest pain, SOB, n/v/d. Taking ?Tessalon Perles with transient relief of cough. She has been prescribed albuterol HFA in past for similar sx with some relief. No h/o asthma. Son has h/o asthma. Lives with 2 sons. No known ill contacts. Not employed. Smokes 1 PPD, 30 pack year hx. Patient Active Problem List Diagnosis Periodontal disease Chronic depression Mood disorder (CMS/HCC) Tubular adenoma of colon Grief at loss of child Dyslipidemia Anxiety Obesity Arthritis, multiple joint involvement Prehypertension Insomnia Tobacco use The following portions of the chart were reviewed this encounter and updated as appropriate: Tobacco Allergies Meds Problems Med Hx Surg Hx Fam Hx Review of Systems Constitutional: Negative for fever. Respiratory: Positive for cough and wheezing. Negative for shortness of breath. Cardiovascular: Negative for chest pain. Gastrointestinal: Negative for abdominal pain. Skin: Negative for rash. Neurological: Negative for headaches. Objective Physical Exam Constitutional: Appearance: Normal appearance. HENT: Right Ear: Tympanic membrane, ear canal and external ear normal. Left Ear: Tympanic membrane, ear canal and external ear normal. Nose: Nose normal. Mouth/Throat: Mouth: Mucous membranes are moist. Pharynx: Oropharynx is clear. Eyes: Conjunctiva/sclera: Conjunctivae normal. Pupils: Pupils are equal, round, and reactive to light. Cardiovascular: Rate and Rhythm: Normal rate and regular rhythm. Heart sounds: No murmur heard. Pulmonary: Effort: Pulmonary effort is normal. Breath sounds: Rhonchi (rare bilat diffuse) present. Musculoskeletal: General: Normal range of motion. Cervical back: No tenderness. Skin: Findings: No rash. Neurological: Mental Status: She is alert. Gait: Gait is intact. Psychiatric: Mood and Affect: Mood normal. Behavior: Behavior normal. Procedures Assessment/Plan Diagnoses and all orders for this visit: Subacute cough ?related to smoking and/or reactive airways disease. Prescribed albuterol HFA with spacer, prednisone. CXR done in [facility] appear to show no acute finding when I reviewed images. Will call pt if radiologistreading differs. I enrolled her in [facility] Lung Cancer Screening Low Dose Chest CT Program. Rtc if not improving. - XR Chest 2 Views; Future Elevated blood pressure reading in office without diagnosis of hypertension Has home BP monitor. Reviewed BP parameters, given written BP log that includes BP parameters, to keep daily. Call if BP readings are elevated. Tobacco use Prescribed nicotine patches and lozenges. - POCT Rapid COVID Ag - Influenza A (ID NOW Rapid Molecular) - Influenza B (ID NOW Rapid Molecular) Other orders - nicotine (Nicoderm CQ) 14 MG/24HR patch; Place 1 patch on the skin 1 (one) time each day at the same time. - nicotine (Nicoderm CQ) 21 MG/24HR patch; Place 1 patch on the skin 1 (one) time each day at the same time. - nicotine (Nicoderm CQ) 7 MG/24HR patch; Place 1 patch on the skin 1 (one) time each day at the same time. - nicotine polacrilex (Commit) 4 MG lozenge; Dissolve 1 lozenge (4 mg) in the mouth every 2 (two) hours if needed for smoking cessation. - Spacer/Aero-Holding Chambers (OptiChamber Kasia) [facility]; 1 each every 4 (four) hours if needed (asthma). - predniSONE (Deltasone) 20 MG tablet; Take 2 tablets (40 mg) by mouth Once per day for 5 days. - albuterol (Ventolin HFA) 108 (90 Base) MCG/ACT inhaler; Inhale 2 puffs every 4 (four) hours if needed for shortness of breath or wheezing (cough). documented in this encounter Plan of Treatment Upcoming Encounters Date Type Department Care Team (Late st Contact Info) Description 06/29/2024 10:15 AM EST Office Visit [facility] [address] [place] [address] [phone] Ashley Mendoza MD [address] [place] [address] documented as of this encounter Procedures Procedure Name Priority Date/Time Associated Diagnosis Comments XR CHEST 2 VIEWS Routine 05/27/2024 11:4 8 AM EST Subacute cough POCT INFLUENZA B (ID NOW RAPID MOLECULAR) Routine 05/27/2024 10:55 AM EST Viral URI POCT INFLUENZA A (ID NOW RAPID MOLECULAR) Routine 05/27/2024 10:55 AM EST Viral URI POCT RAPID COVID ANTIGEN Routine 05/27/2024 10:55 AM EST Viral URI documented in this encounter Results * XR Chest 2 Views (05/27/2024 11:48 AM EST) Anatomical Region Laterality Modality Chest Radiographic Veronica ging 05/27/2024 11:4 8 AM EST Narrative 05/27/2024 1:30 PM EST ?[facility] ?[address] ?[place] [address] ?XRay Report ? Signed ? Patient: Joya,Gricel ?MR#: [id number] ?? 0 ? : 1965 ?Acct:[id number] ? Age/Sex: 59 / F ?ADM Date: 05/27/24 ? Loc: HO.HHCX ? Attending Dr: Kyaw Rubi MD ? Ordering Physician: KYAW RUBI MD ?? Date of Service: 05/27/24 ?? Procedure(s): XR chest 2V ?? Accession Number(s): [id number] ? cc: KYAW RUBI MD ? EXAMINATION: ?? XR CHEST ? CLINICAL INFORMATION: ?? subacute cough ? COMPARISON: ?? 02/20/2017. ? TECHNIQUE: ?? 2 views of the chest were obtained. ? FINDINGS: ?? The cardiac, hilar, and mediastinal contours are normal. ? The lungs are clear bilaterally. There is no pneumothorax or pleural ?? effusion. ? There is no focal osseous or soft tissue abnormality. ? XR/XR chest 2V ?? IMPRESSION: ?? Normal chest. ? Electronically signed by: ??Matthieu Mitchell MD ??05/27/2024 01:27 PM EST RP ? Dictated By: ?Matthieu Mitchell MD ? Signed By: ?<Electronically signed by Matthieu Mitchell MD in OV> ?05/27/24 1327 ? DD/ 1148 ? TD/TT: 05/27/24 1155 ? Cloth Winder: ? Procedure Note Brenda Mendez - 05/27/[address] [address] XRay Report Signed Patient: Karthik Joya#: [id number] 0 : 1965Acct:[id number] Age/Sex: 59 / FADM Date: 05/27/24 Loc: HO.HHCX Attending Dr: Kyaw Rubi MD Ordering Physician: KYAW URBI MD Date of Service: 05/27/24 Procedure(s): XR chest 2V Accession Number(s): [id number] cc: KYAW RUBI MD EXAMINATION: XR CHEST CLINICAL INFORMATION: subacute cough COMPARISON: 02/20/2017. TECHNIQUE: 2 views of the chest were obtained. FINDINGS: The cardiac, hilar, and mediastinal contours are normal. The lungs are clear bilaterally. There is no pneumothorax or pleural effusion. There is no focal osseous or soft tissue abnormality. XR/XR chest 2V IMPRESSION: Normal chest. Electronically signed by: Matthieu Mitchell MD 05/27/2024 01:27 PM EST Dictated By: Matthieu Mitchell MD Signed By: <Electronically signed by Matthieu Mitchell MD in OV> 05/27/24 1327 DD/ 1148 TD/TT: 05/27/24 1155 Cloth Winder: Kyaw Rubi MD IMG XR PROCEDURES Final Result * Influenza B (ID NOW Rapid Molecular) (05/27/2024 10:55 AM EST) Influenza B Negative Negative, Indeterminate [facility] Swab 05/27/2024 10:5 5 AM EST Kyaw Rubi MD POINT OF CARE TEST ENTER/EDIT OR DERABLES Final Result Performing Organization Address [facility] Co de Phone Number [facility] [address] [place] [phone] * Influenza A (ID NOW Rapid Molecular) (05/27/2024 10:55 AM EST) Influenza A Negative Negative, Indeterminate [facility] Swab 05/27/2024 10:5 5 AM EST Kyaw Rubi MD POINT OF CARE TEST ENTER/EDIT OR DERABLES Final Result Performing Organization Address [facility]/ZIP Co de Phone Number [facility] [address] [place] [address] [phone] * POCT Rapid COVID Ag (05/27/2024 10:55 AM EST) Rapid COVID Ag Negative [facility] Swab 05/27/2024 10:5 5 AM EST Kyaw Rubi MD POINT OF CARE TEST ENTER/EDIT OR DERABLES Final Result [facility] [address] [place] [phone] documented in this encounter Visit Diagnoses Diagnosis Subacute cough- Primary Elevated blood pressure reading in office without diagnosis of hypertension Tobacco use Viral URI Acute upper respiratory infections of unspecified site documented in this encounter Care Teams Branch Service Representative Relationship Specialty Start Date End Date Ashley Mendoza MD [address] [place] [phone] PCP - General Family Medicine 10/04/15 documented as of this encounter
--- OUTSIDE RECORDS SUMMARY | 2024-05-27 13:49 | XMS_ITS | Encounter Summary ---
Author Organization [employer] Address [address] [facility] 7[address] [place] [address] Care Team Providers Care Textile Screen Printer Name Role Phone Ashley Mendoza MD Primary Care Provider [phone] Reason for Visit * Reason Onset Date Comments reach out to patient skin hanging from tooth 05/2023 Encounter Details Date Type Department Care Team ([facility] st Contact Info) Description 08/05/2023 Telephone [facility] [address] [place] [address] Nicolás Call DDS [address] [place] [address] reach out to patient skin hanging from tooth Social History Tobacco Use Types Packs/Day Years Used Date Smoking Tobacco: Former Cigarettes Passive Smoke Exposure: Never Smokeless Tobacco: Former Alcohol Use Standard Drinks/Week Comments Defer 0 (1 standard drink = 0.6 oz pur e alcohol) Comments Unknown Sex and Gender Information Value Date Recorded Sex Assigned at Female 03/05/2022 10:14 AM EDT Legal Sex Female 10:14 AM EDT Gender Identity Female 03/05/2022 10:14 AM EDT Sexual Orientation Don't know 03/05/2022 10 :14 AM EDT documented as of this encounter Miscellaneous Notes * Telephone Encounter - Oxana Noe - 08/05/2023 4:13 PM EDT Patient called in to report that she has skin hanging from the tooth area that was extracted. She wants to know if its normal. She is uncomfortable and would like to speak with provider documented in this encounter Plan of Treatment Upcoming Encounters Date Type Department Care Team (Late st Contact Info) Description 06/29/2024 10:15 AM EST Office Visit [facility] [address] [place] [address] Ashley Mendoza MD [address] [place], [place] [phone] documented as of this encounter Visit Diagnoses Not on filedocumented in this encounter Care Teams Textile Screen Printer Relationship Specialty Start Date End Date Ashley Mendoza MD [address] [place] [address] [phone] PCP - General Family Medicine 10/04/15 documented as of this encounter
--- OUTSIDE RECORDS SUMMARY | 2024-05-27 13:49 | XMS_ITS | Encounter Summary ---
Author Organization [employer] Address [address] [place] [address] 7t [place] [address] Care Team Providers Care Furniture Refinisher Name Role Phone Ashley Mendoza MD Primary Care Provider [phone] Reason for Referral * Consultation (Routine) - Closed Specialty Diagnoses / Procedures Referred By Jairo foster Referred To Contact Thoracic Surgery Diagnoses Tobacco dependence Ashley Mendoza MD [address] [place] [address] Phone: tel: fax: [facility] Referral ID Status Reason Start Date Expiration Date V isits Requested Visits Authorized [id number] Closed Specialty Services Required 07/17/2023 07/16/2024 12 12 Encounter Details Date Type Department Care Team (Late st Contact Info) Description 07/17/2023 Orders Only [facility] [address] [place] [address] [phone] Ashley Mendoza MD [address] [place], [place] [phone] Tobacco dependence (Primary Dx) Social History Tobacco Use Types Packs/Day Years [...] AM EDT documented as of this encounter Plan of Treatment Upcoming Encounters Date Type Department Care Team (Late st Contact Info) Description 06/29/2024 10:15 AM EST Office Visit [facility] [address] [place] [address] Ashley Mendoza MD [address] [place] [address] Scheduled Referrals Name Type Priority Associated Diagnoses Order Schedule Referral to Cardiothoracic Surgery Outpatient Referral Routine Tobacco dependence Expected: 07/17/2023 (Approximate), Expires: 07/16/2024 documented as of this encounter Visit Diagnoses Diagnosis Tobacco dependence- Primary Tobacco use disorder documented in this encounter Care Teams Furniture Refinisher Relationship Specialty Start Date End Date Ashley Mendoza MD [address] [place] [address] PCP - General Family Medicine 10/04/15 documented as of this encounter
--- OUTSIDE RECORDS SUMMARY | 2024-05-27 13:49 | XMS_ITS | Encounter Summary ---
Author Organization [employer] Address [address] [facility] [address] [place] [address] Care Team Providers Care Hairpiece Stylist Name Role Phone Ashley Mendoza MD Primary Care Provider [phone] Encounter Details Date Type Department Care Team (Latest Contact Info) Description 05/27/2024 Travel Social History Tobacco Use Types Packs/Day Years [...] Description 06/29/2024 10:15 AM EST Office Visit [facility] [address] [place] [address] Ashley Mendoza MD [address] [place] [address] documented as of this encounter Visit Diagnoses Not on filedocumented in this encounter Care Teams Hairpiece Stylist Relationship Specialty Start Date End Date Ashley Mendoza MD [address] [place] [address] PCP - General Family Medicine 10/04/15 documented as of this encounter
--- OUTSIDE RECORDS SUMMARY | 2024-05-27 13:49 | XMS_ITS | Clinical Summary ---
Author Organization [facility] Address [address] [facility] [address] [place] [address] Care Team Providers Care Hr Director Name Role Phone Ashley Mendoza MD Primary Care Provider [phone] Allergies Active Allergy Reactions Criticality Noted Date Comments Loratadine 06/20/2010 Other Reaction(s): legs numb & heavy Medications Diclofenac Sodium 1 % gel Apply daily to affected areas 100 g 2 08/15/19 24 Active Melatonin 3 MG capsule Take 1 capsule by mouth 2 hours before your desired bedtime, as needed for insomnia 30 capsule 3 10/15/19 24 Active silver sulfADIAZINE (Silvadene) 1 % cream Apply topically 2 times daily. 50 g 01/21/20 24 025 Active acetaminophen (Tylenol) 500 MG tablet Take 2 tablets (1,000 mg) by mouth every 8 (eight) hours if needed for mild pain, moderate pain, fever or headaches. 180 tablet 1 01/21/20 24 Active ibuprofen 600 MG tablet Take 1 tablet (600 mg) by mouth every 8 (eight) hours if needed for mild pain, moderate pain or fever. 90 tablet 1 01/21/20 24 Active nicotine (Nicoderm CQ) 14 MG/24HR patch Place 1 patch on the skin 1 (one) time each day at the same time. 14 patch 05/27/19 25 025 Active nicotine (Nicoderm CQ) 21 MG/24HR patch Place 1 patch on the skin 1 (one) time each day at the same time. 42 patch 05/27/19 25 Active nicotine (Nicoderm CQ) 7 MG/24HR patch Place 1 patch on the skin 1 (one) time each day at the same time. 14 patch 05/27/19 25 025 Active nicotine polacrilex (Commit) 4 MG lozenge Dissolve 1 lozenge (4 mg) in the mouth every 2 (two) hours if needed for smoking cessation. 100 lozenge 05/27/19 25 025 Active Spacer/Aero-Hol ding Chambers (OptiChamber Kasia) misc 1 each every 4 (four) hours if needed (asthma). 1 each 05/27/19 25 Active predniSONE (Deltasone) 20 MG tablet Take 2 tablets (40 mg) by mouth Once per day for 5 days. 10 tablet 05/27/19 25 025 Active albuterol (Ventolin HFA) 108 (90 Base) MCG/ACT inhaler Inhale 2 puffs every 4 (four) hours if needed for shortness of breath or wheezing (cough). 18 g 3 05/27/19 25 Active Ventolin HFA 108 (90 Base) MCG/ACT inhaler INHALE 2 PUFFS BY MOUTH EVERY 4 HOURS NEEDED FOR WHEEZING OR SHORTNESS OF BREATH. NO MORE THAN 8 PUFFS PER DAY 18 g 3 01/27/20 24 025 Discontinued(Re order (will not trigger notification to Pharmacy)) azithromycin (Zithromax) 250 MG tabletIndicatio ns:Subacute cough Take 2 tablets (500 mg) by mouth Once per day for 1 day, THEN 1 tablet (250 mg) Once per day for 4 days. 6 tablet 04/24/20 24 024 Active Problems Problem Noted Date Diagnosed Date Tobacco use 02/02/2024 Assessment & Plan (02/02/2024 5:48 AM EDT): - current - continue working on smoking cessation Arthritis, multiple joint involvement 10/21/2023 Assessment & Plan (02/02/2024 5:41 AM EDT): - autoimmune disorder / inflammatory arthritis lab was normal - patient prefers conservative management Assessment & Plan (10/21/2023 9:33 AM EDT): - advised patient to do the lab that was ordered when she came to the walk-in clinic Prehypertension 10/21/2023 Assessment & Plan (02/02/2024 5:39 AM EDT): -Goal BP < 140/90 per JNC-8 and < 130/80 per ACC/AHA guideline (Treatment threshold >=140/90) -BP within acceptable range -Continue working on lifestyle modifications -Recommended self-monitoring BP. -Follow up in 3-6 mo, sooner if any problem arises Insomnia 10/21/2023 Assessment & Plan (10/21/2023 9:35 AM EDT): - improve sleep hygiene - continue engaging in current behavioral health service provider - Rx melatonin Dyslipidemia 07/28/2023 Assessment & Plan (02/02/2024 5:41 AM EDT): - 01/29/22 Significantly elevated Triglyceride - repeat lab - If Triglyceride > 500, consider locaspent - work on lifestyle modifications Assessment & Plan (10/21/2023 9:32 AM EDT): - 01/29/22 Significantly elevated Triglyceride - repeat lab - If Triglyceride > 500, consider locaspent - work on lifestyle modifications Assessment & Plan (07/28/2023 4:45 PM EDT): - 01/29/22 Significantly elevated Triglyceride - repeat lab - If Triglyceride > 500, consider locaspent - work on lifestyle modifications Tubular adenoma of colon 07/08/2023 Assessment & Plan (02/02/2024 5:40 AM EDT): - last colonoscopy by Dr. Lawson in Jan 2018 - 2 polyps removed: Tubular adenoma at hepatic flexure and hyperplastic polyp at 15 cm - will check whether patient is due for her colonoscopy Assessment & Plan (10/21/2023 9:31 AM EDT): - last colonoscopy by Dr. Lawson in Jan 2018 - 2 polyps removed: Tubular adenoma at hepatic flexure and hyperplastic polyp at 15 cm - will check whether patient is due for her colonoscopy Assessment & Plan (07/08/2023 4:06 PM EST): - last colonoscopy by Dr. Lawson in Jan 2018 - 2 polyps removed: Tubular adenoma at hepatic flexure and hyperplastic polyp at 15 cm - will check whether patient is due for her colonoscopy Grief at loss of child 07/08/2023 Assessment & Plan (07/08/2023 4:07 PM EST): - her son of overdose in late 2021 - continue current behavioral health service Periodontal disease 10/05/2022 Anxiety 05/14/2017 Chronic depression 10/24/2015 Assessment & Plan (02/02/2024 5:41 AM EDT): -Hospitalization for MDD in November 2021 -Pt dislikes medications. Previously tried bupropion and self-discontinued due to side effect -Continue therapy with [facility] -Pt does not have a psychiatrist becuase she does not want to take a medication. Assessment & Plan (10/21/2023 9:32 AM EDT): -Hospitalization for MDD in November 2021 -Pt dislikes medications. Previously tried bupropion and self-discontinued due to side effect -Continue therapy with [facility] -Pt does not have a psychiatrist becuase she does not want to take a medication. Assessment & Plan (07/08/2023 4:07 PM EST): -Recent hospitalization for MDD in November 2021 -Pt dislikes medications. Previously tried bupropion and self-discontinued due to side effect -Continue therapy with [facility] -Pt does not have a psychiatrist becuase she does not want to take a medication. Mood disorder 10/24/2015 Obesity 10/24/2015 Encounters Date Type Department Care Team Description 05/27/2024 11:00 AM EST Office Visit [facility] [address] [place] [address] Kyaw Rubi MD Subacute cough (Primary Dx); Elevated blood pressure reading in office without diagnosis of hypertension; Tobacco use; Viral URI 05/27/2024 Travel 04/30/2024 Telephone [facility] [address] [place] [address] Hanny Rudolph MA may 04/24/2024 10:00 AM EST Office Visit [facility] [address] [place] [address] Mike Matt MD Subacute cough 03/31/2024 Travel from Last 3 Months Immunizations Name Administration Dates Next Due Hep B, adult 01/23/2002 Influenza injectable quadriv alent IIV4 with preservative 05/14/2017,01/23/2016 Influenza injectable quadrivalent preservative f ree 06/09/2018 Influenza, Split (incl. purified surface antigen ) 01/24/2012 Pneumococcal Polysaccharide PPSV23 10/24/2015 TD (adult), 2 Lf tetanus tox oid, preservative free, adsorbed 01/23/2002 Tdap 01/24/2012 Social History Tobacco Use Types Packs/Day Years Used Date Smoking Tobacco: Every Day Cigarettes 0.3 39.1 Started: 1985 Passive Smoke Exposure: Never Smokeless Tobacco: Former Alcohol Use Standard Drinks/Week Comments Defer 0 (1 standard drink = 0.6 oz pur e alcohol) Housing Stability Answer Date Recorded What is your housing situation today? I have marileebret linares 10/15/[address] you [...] Don't know 03/05/2022 10 :14 AM EDT Last Filed Vital Signs Vital Sign Reading Time Taken Comments Blood Pressure 159/84 05/27/2024 10:39 AM EST Pulse 63 05/27/2024 10:39 AM EST Temperature 36.7 ??C (98.1 ??F) 05/27/2024 10:[address] Respiratory Rate 18 05/27/2024 10:39 AM EST Oxygen Saturation 97% 05/27/2024 10:39 AM EST Inhaled Oxygen Concentration - - Weight 70.8 kg (156 lb) 05/27/2024 10:39 AM EST Height 147.3 cm (4' 10 ) 04/24/2024 9:57 AM EST Body Mass Index 32.6 04/24/2024 9:57 AM EST Plan of Treatment Upcoming Encounters Date Type Department Care Team (Late st Contact Info) Description 06/29/2024 10:15 AM EST Office Visit [facility] [address] [place], [place] [phone] Ashley Mendoza MD [address] [place] [address] Health Maintenance Due Date Last Done Comments CT Colonography 1965 Colonoscopy 1965 Colorectal Cancer Screening 1965 FIT DNA/Cologuard 1966 FIT 1966 FOBT 1965 Sigmoidoscopy 1965 Alcohol/Substance Use Screening 1978 Hepatitis A Vaccines (1 of 2 - Risk 2-dose series) 1985 Hepatitis B Vaccines (2 of 3 - 19+ 3-dose series) 02/20/2002 01/23/2002 Dental Prophylaxis 05/14/2009 11/10/2008 Zoster Vaccines (1 of 2) 2016 Pneumococcal Vaccine: Pediatrics (0 to 5 Years) and At-Risk Patients (6 to 64 Years) (2 of 2 - PCV) 10/23/2016 10/24/2015 Mammogram 06/10/2020 06/10/2018 DTaP/Tdap/Td Vaccines (2 - Td or Tdap) 01/23/2022 01/24/2012, 01/23/2002 COVID-19 Vaccine (1 - 2024-25 season) 2024 Influenza Vaccine (#1) 2024 9, 05/14/2017, 01/23/2016, Additional history exists Dental Oral Exam 02/15/2024 08/15/2023, 10/2013, 05/11/2013 Dental X-Ray: Bitewings 08/15/2024 08/15/19 24, 04/04/2020, 05/11/2013, Additional history exists Depression Screening 10/14/2024 10/15/2023, 10/15/19 Diabetes: Hemoglobin A1C 10/14/2024 10/15/2023, 01/05 SDOH Screening 10/14/2024 10/15/2023 Tobacco Screening 05/27/2025 05/27/2024 Pap Smear 10/14/2026 10/15/2023, 01/29/2022 Dental X-Ray: Full Mouth 01/08/2027 024, 08/15/2023, 10/05/2022, Additional history exists Cervical Cancer Screening 10/14/2028 HPV/Cotest 10/14/2028 10/15/2023, 01/05, 01/08/2017 Lipid Panel 10/14/2028 10/15/2023, 01/29/2022 RSV Patients and Patients Aged 60 years or older (1 - 1-dose 75+ series) 2041 HIV Screening Completed 01/29/2022 Hepatitis C Screening Completed 01/29/2022 HIB Vaccines Aged Out No longer eligi ble based on patient's age to complete this topic HPV Vaccines Aged Out No longer eligi ble based on patient's age to complete this topic IPV Vaccines Aged Out No longer eligi ble based on patient's age to complete this topic Meningococcal Vaccine Aged Out No ce sabrina eligible based on patient's age to complete this topic RSV under 20 months Aged Out No longe r eligible based on patient's age to complete this topic Rotavirus Vaccines Aged Out No longer eligible based on patient's age to complete this topic Procedures Procedure Name Priority Date/Time Associated Diagnosis Comments XR CHEST 2 VIEWS Routine 05/27/2024 11:4 8 AM EST Subacute cough POCT INFLUENZA B (ID NOW RAPID MOLECULAR) Routine 05/27/2024 10:55 AM EST Viral URI POCT INFLUENZA A (ID NOW RAPID MOLECULAR) Routine 05/27/2024 10:55 AM EST Viral URI POCT RAPID COVID ANTIGEN Routine 05/27/2024 10:55 AM EST Viral URI RESPIRATORY VIRAL PANEL PCR Routine 04/24/2024 10:30 AM EST Subacute cough POCT INFLUENZA A (ID NOW RAPID MOLECULAR) Routine 04/24/2024 10:18 AM EST Subacute cough POCT INFLUENZA B (ID NOW RAPID MOLECULAR) Routine 04/24/2024 10:18 AM EST Subacute cough POCT RAPID COVID ANTIGEN Routine 04/24/2024 10:18 AM EST Subacute cough POCT INFLUENZA A (ID NOW RAPID MOLECULAR) Routine 03/31/2024 5:14 PM EST Cough in adult patient POCT RAPID COVID ANTIGEN Routine 03/31/2024 5:14 PM EST Cough in adult patient POCT INFLUENZA B (ID NOW RAPID MOLECULAR) Routine 03/31/2024 5:13 PM EST Cough in adult patient PANORAMIC RADIOGRAPHIC IMAGE Routine 01/08/2024 11:30 AM EDT Dental calculus Periodontal disease Dental abscess HEMOGLOBIN A1C Routine 10/15/2023 2:54 PM EDT Overweight LIPID PANEL WITH REFLEX TO DIRECT LDL Routine 10/15/2023 2:54 PM EDT Overweight PAP SMEAR Routine 10/15/2023 2:41 PM EDT Encounter for well woman exam with routine gynecological exam HPV MRNA E6/E7 REFLEX TO HPV 16, 18/45 Routine 10/15/2023 12:00 AM EDT Encounter for well woman exam with routine gynecological exam DIAGNOSTIC - DIAGNOSTIC IMAGING - INTRAORAL - COMPREHENSIVE SERIES OF RADIOGRAPHIC IMAGES Routine 08/15/2023 1:30 PM EDT Encounter for dental examination Dental caries Periodontal disease PERIODIC ORAL EVALUATION - ESTABLISHED PATIENT Routine 08/15/2023 1:30 PM EDT Encounter for dental examination Dental caries Periodontal disease ZZZ HISTORICAL HEPATITIS C AB W/REFL TO HCV RNA, QN, PCR Routine 01/29/2022 2:18 PM EDT HIV 1/2 ANTIGEN/ANTIBODY, FOURTH GENERATION W/RFL Routine 01/29/2022 2:18 PM EDT BI MAMMOGRAM SCREENING BILATERAL Routine 06/10/2018 11:46 AM EST PROPHYLAXIS - ADULT Routine 11/10/2008 1 2:00 AM EDT from Last 3 Months or Most Recently Relevant to Health Maintenance Results * XR Chest 2 Views (05/27/2024 11:48 AM EST) Anatomical Region Laterality Modality Chest Radiographic Veronica ging 05/27/2024 11:4 8 AM EST Narrative 05/27/2024 1:30 PM EST ?[facility] ?[address] ?[place] [address] ?XRay Report ? Signed ? Patient: Joya,Gricel ?MR#: [id number] ?? 0 ? : 1965 ?Acct:[id number] ? Age/Sex: 59 / F ?ADM Date: 05/27/24 ? Loc: HO.HHCX ? Attending Dr: Kyaw Rubi MD ? Ordering Physician: KYAW RUBI MD ?? Date of Service: 05/27/24 ?? Procedure(s): XR chest 2V ?? Accession Number(s): [id number] ? cc: KYAW RUBI MD ? EXAMINATION: [...] DD/ 1148 ? TD/TT: 05/27/24 1155 ? [facility]: ? Procedure Note Donotbisiinterpreter, Image - 05/27/[address] [address] XRay Report Signed Patient: Karthik Joya#: [id number] 0 : 1965Acct:[id number] Age/Sex: 59 / FADM Date: 05/27/24 Loc: HO.HHCX Attending Dr: Kyaw Rubi MD Ordering Physician: KYAW RUBI MD Date of Service: 05/27/24 Procedure(s): XR chest 2V Accession Number(s): [id number] cc: KYAW RUBI MD EXAMINATION: XR CHEST [...] 05/27/24 1327 DD/ 1148 TD/TT: 05/27/24 1155 [facility]: Kyaw Rubi MD IMG XR PROCEDURES Final Result * Influenza B (ID NOW Rapid Molecular) (05/27/2024 10:55 AM EST) Only the most recent of3 resultswithin the time period is included. Pathologist [facility] Influenza B Negative Negative, Indeterminate [facility] Swab 05/27/2024 10:5 5 AM EST us Kyaw Rubi MD POINT OF CARE TEST ENTER/EDIT OR DERABLES Final Result Performing Organization Address [facility] Co de Phone Number [facility] [address] [place] [phone] * Influenza A (ID NOW Rapid Molecular) (05/27/2024 10:55 AM EST) Only the most recent of3 resultswithin the time period is included. Pathologist [facility] Influenza A Negative Negative, Indeterminate [facility] Swab 05/27/2024 10:5 5 AM EST us Kyaw Rubi MD POINT OF CARE TEST ENTER/EDIT OR DERABLES Final Result Performing Organization Address [facility] Co de Phone Number [facility] [address] [place] [phone] * POCT Rapid COVID Ag (05/27/2024 10:55 AM EST) Only the most recent of3 resultswithin the time period is included. Pathologist [facility] Rapid COVID Ag Negative [facility] Swab 05/27/2024 10:5 5 AM EST us Kyaw Rubi MD POINT OF CARE TEST ENTER/EDIT OR DERABLES Final Result Performing Organization Address [facility] de Phone Number [facility] [address] [place] [phone] * Respiratory Viral Panel PCR (04/24/2024 10:30 AM EST) [facility] Adenovirus PCR Not Detected Not Detect. [facility] Bordetella pertussis PCR Not Detected Not Detect. [facility] Comment:Interpret results wi th caution. If B. pertussis isspecifically suspected, additional testing using analternate method is recommended. Bordetella parapertussis PCR Not Detected Not Detect. [facility] Chlamydia pneumoniae PCR Not Detected Not Detect. [facility] Coronavirus 229E PCR Not Detected Not Detect. [facility] Coronavirus HKU1 PCR Not Detected Not Detect. [facility] Coronavirus NL63 PCR Not Detected Not Detect. [facility] Coronavirus OC43 PCR Not Detected Not Detect. [facility] SARS-CoV-2 PCR Not Detected Not Detect. [facility] Comment:SARS-CoV-2 not detec summer by real-time RT-PCR.Note: If clinical suspicion for Sars-CoV-2 is high, continueto maintain precautions and consider repeat testing.Test results should be interpreted in the context ofclinical findings and other laboratory data.Rare polymorphisms exist that could lead to false-negativeor false-positive results. If results do not match theclinical findings, additional testing should be considered.Results reported to LEX[facility] NUNEZ.This test has been authorized by the FDA under the EmergencyUse Authorization (EUA) for use by authorized laboratories. Influenza A PCR Not Detected Not Detect. [facility] Influenza B PCR Not Detected Not Detect. [facility] Human metapneumovirus PCR Not Detected Not Detect. [facility] Rhino/Enterovirus PCR Not Detected Not Detect. [facility] Mycoplasma pneumoniae PCR Not Detected Not Detect. [facility] Parainfluenza 1 PCR Not Detected Not Detect. [facility] Parainfluenza 2 PCR Not Detected Not Detect. [facility] Parainfluenza 3 PCR Not Detected Not Detect. [facility] Parainfluenza 4 PCR Not Detected Not Detect. [facility] RSV PCR Not Detected Not Detect. [facility] Resp Panel NA Note See Note [facility] Comment:All results must be correlated with clinical findings.Negative results should not be used as the sole basis fordiagnosis, treatment, or other management decisions.A negative result does not exclude the possibility of viralor bacterial infection. Negative results may occur from thepresence of sequence variants in the region targeted by theassay, the presence of inhibitors, an infection caused by anorganism not detected by the panel, or lower respiratorytract infections that are not detected by a nasopharyngealswab specimen. Test results may also be affected byconcurrent antiviral/antibacterial therapy or levels oforganism in the specimen that are below the limit ofdetection for this test.This assay is performed by Multiplexed PCR, utilizing [employer] Processing Film Array. Swab 04/24/2024 10:3 0 AM EST 04/24/2024 5:43 PM EST us Mike Matt MD LAB BLOOD ORDERABLES Final Resul t [facility] [address] [place] [phone] * (ABNORMAL) Lipid Panel with Reflex to Direct LDL (10/15/2023 2:54 PM EDT) Triglycerides 180(H) <150 mg/dL [facility] Comment:Desirable Triglyceri de: less than 150 mg/dLBorderline High Triglyceride 150-199 mg/dLHigh Triglyceride: 200-499 mg/dLVery High Triglyceride: greater than or equal to 5OO mg/dL Cholesterol 210(H) <200 mg/dL [facility] Comment:Desirable Cholestero l: less than 200 mg/dLBorderline High Cholesterol: 200-239 mg/dLHigh Cholesterol: greater than 239 mg/dL LDL Cholesterol Calculated 121(H) <100 mg/dL [facility] Comment:Desirable LDL: less than 100 mg/dLNear Optimal/Above Optimal LDL: 110- 129 mg/dLBorderline High LDL: 130-159 mg/dLHigh LDL: 160-189 mg/dLVery High LDL: greater than or equal to 190 mg/dL HDL Cholesterol 53 >40 mg/dL [facility] Comment:Desirable HDL: grea ter than 40 mg/dL Note: This HDL assay may give artificially low results in patients with liver disease. Blood 10/15/2023 2:54 PM EDT 10/15/2023 4:03 PM EDT us Ashley Mendoza MD LAB BLOOD ORDERABLES Final Resul t Performing Organization Address [facility] Co de Phone Number [facility] [address] [place] [phone] * Hemoglobin A1c (10/15/2023 2:54 PM EDT) Hemoglobin A1c 5.7 <6.0 % [facility] Comment:Hemoglobin A1C Refer ence Range Adults: 4.8 - 6.0 % Non diabetic: < 6.0 % Goal: < 7.0 %Additional Action Suggested: > 8.0 %Note: Hemoglobin A1c results are invalid for patients with abnormal amounts of HbF. Blood transfusions may impact the HbA1c concentration in the patient sample. Estimated Average Glucose 117 mg/dL [facility] Comment:eAG = Estimated ave rage glucose which is %A1C expressed asaverage glucose, using the formula of the P5L-EfxwulxVusbrji Glucose study (ADAG), Diabetes Care, Vol.31,#8,Dec. 2007 Blood Venous blood specimen / Unknown 10/15/2023 2:54 PM EDT 10/15/2023 4:03 PM EDT Ashley Mendoza MD LAB BLOOD ORDERABLES Final Resul t Performing Organization Address [facility] Co de Phone Number [facility] [address] [place] [phone] * Pap Smear (10/15/2023 2:41 PM EDT) Swab 10/15/2023 2:41 PM EDT 10/16/2023 6:00 AM EDT Narrative [facility] - 11/03/2023 3:51 PM EDT ----- ------- Name: Gricel Joya ?Age/Sex: 58/F ? : 1965 Unit#: [id number] ?? Attend Dr: Ashley Mendoza MD ?Re10/15/23 ?Status: DEP REF ? Location: HO.HHCL ? Disch: ? ----- ------- SPEC : [id number] ?RECD: 10/16/23 ? STATUS: ??SOUT ? REQ NUM: [id number] ? YOU: 10/15/23-144 ? SUBM DR: Ashley Mendoza MD ? ENTERED: ??10/16/23 ?SP TYPE: Pap Smr ?OTHR : ? ORDERED: ??Pap Smear ? Interpretation ?? Satisfactory for evaluation. ?? No endocervical cells seen. ?? Negative for intraepithelial lesion or malignancy. ? HPV mRNA E6/E7: ?NOT DETECTED ? This assay detects E6/E7 viral messenger RNA (mRNA) from 14 high-risk HPV types (16, 18, ?? 31, 33, 35, 39, 45, 51, 52, 56, 58, 59, 66, 68) ? HPV testing performed by [facility], [place], [place]. ??See reference laboratory ?? portion of the EMR for entire report. ?Clinical Information LMP: Unknown date Previous PAP test: Unknown date/findings ? Material Received ?? ThinPrep-Vaginal/Cervical ----- ------- Signed (signature on file) [employer] 11/03/23 1551 ? ----- ------- ? END OF REPORT ? us Ashley Mendoza MD LAB CYTOLOGY ORDERABLES Final Re sult Performing Organization Address [facility] Co de Phone Number [facility] [address] [place] [address] [phone] * HPV mRNA E6/E7 w/Reflex to HPV Genotypes 16, 18/45 (10/15/2023 12:00 AM EDT) HPV nRNA E6/E7 Not Detected Not Detected [facility] Comment:Methodology: Transcr iption-Mediated AmplificationThis assay detects E6/E7 viral messenger RNA (mRNA) from 14high-risk HPV types (16,18,31,33,35,39,45,51,52,56,58,59,66,68).Cervical sources are required for HPV testing.If a vaginal source from a patient who has had atotal hysterectomy with removal of cervix wassubmitted, please contact the testing laboratoryfor alternative testing options.For additional information, please refer [email or web address]/YGO727b8(This link if provided for information/educational purposes only.)THIS TEST WAS PERFORMED AT:[employer] [place] [phone] BENÍTEZ MD HPV mRNA E6/E7 [facility] HPV 16 RNA [facility] HPV 18/45 RNA [facility] Vaginal Fluid Vaginal structure / Unknown 10/15/2023 10/15/2023 Ashley Mendoza MD LAB CYTOLOGY ORDERABLES Final Re sult Performing Organization Address [facility]/ZIP Co de Phone Number [facility] [address] [place] [address] [phone] * HEPATITIS C AB W/REFL TO HCV RNA, QN, PCR (01/29/2022 2:18 PM EDT) HEPATITIS C ANTIBODY NON-REACT LEXI NON-REACT [facility] INDEX 0.07 <1.00 [facility] Comment: ?? HCV antibody was non-reactive. There is no laboratory ?? evidence of HCV infection. ?? In most cases, no further action is required. However, if recent HCV exposure is suspected, a test for HCV RNA (test code 20660) is suggested. ?? For additional information please refer to http://[employer]Neighborhoods/faq/NOO11p0 (This link is being provided for informational/ educational purposes only.) ?? 01/29/2022 2:18 PM EDT Ashley Mendoza MD HISTORICAL/NON ORDERABLE LABS Fi nal Result Performing Organization Address [facility] de Phone Number [facility] [address] [place] [address], * HIV 1/2 ANTIGEN/ANTIBODY,FOURTH GENERATION W/RFL (01/29/2022 2:18 PM EDT) HIV-1/2 ANTIGEN AND ANTIBODIES, 4TH GENERATION W/ REFLEX NON-REACT LEXI NON-REACT LEXI [facility] Comment: HIV-1 antigen and HIV-1/HIV-2 antibodies were not detected. There is no laboratory evidence of HIV infection. ?? PLEASE NOTE: This information has been disclosed to you from records whose confidentiality may be protected by state law. ??If your state requires such protection, then the state law prohibits you from making any further disclosure of the information without the specific written consent of the person to whom it pertains, or as otherwise permitted by law. A general authorization for the release of medical or other information is NOT sufficient for this purpose. ? For additional information please refer to http://education.Neighborhoods/faq/RBE873 (This link is being provided for informational/ educational purposes only.) ? The performance of this assay has not been clinically validated in patients less than 2 years old. ?? 01/29/2022 2:18 PM EDT Ashley Mendoza MD LAB BLOOD ORDERABLES Final Resul t Performing Organization Address [facility] de Phone Number [facility] [address] [place] [address], * DIGITAL BILATERAL SCREEN 1 (06/10/2018 11:46 AM EST) Anatomical Region Laterality Modality Breast Bilateral Mammography 06/10/2018 11:4 6 AM EST Narrative 06/10/2018 11:47 AM EST Refer to the Notes tab for result details Legacy Procedure: DIGITAL BILATERAL SCREEN 1 Procedure Note Provider, MD Lupillo - 07/28/2022 Refer to the Notes tab for result details Legacy Procedure: DIGITAL BILATERAL SCREEN 1 Ashley Mendoza MD IMG BI PROCEDURES Final Result from Last 3 Months or Most Recently Relevant to Health Maintenance Insurance [facility] C3 DENTAL-[facility] MEDICAID STAND ADULT Care Teams Hr Director Relationship Specialty Start Date End Date Ashley Mendoza MD [address] [place] [id number] PCP - General Family Medicine 10/04/15
--- OUTSIDE RECORDS SUMMARY | 2024-05-27 13:49 | XMS_ITS | Encounter Summary ---
Author Organization [employer] Address [address] [place] [address] [address] [place] [address] Care Team Providers Care Icu Nurse Name Role Phone Ashley Mendoza MD Primary Care Provider [phone] Reason for Visit * Reason Onset Date Comments Nurse Triage 01/03/2023 Encounter Details Date Type Department Care Team ([facility] st Contact Info) Description 01/03/2023 Telephone [facility] [address] [place] [address] Ashley Mendoza MD [address] [place] [address] Nurse Triage Social History Tobacco Use Types Packs/Day Years [...] encounter Miscellaneous Notes * Telephone Encounter - Ya Basilio - 01/03/2023 8:22 AM EDT Symptom: Skin Lump (back area) x 3 days Outcome: Schedule an appointment to be seen within 3 days Reason: Caller denied all higher acuity questions The caller accepted this outcome documented in this encounter Plan of Treatment Upcoming Encounters Date Type Department Care Team (Late st Contact Info) Description 06/29/2024 10:15 AM EST Office Visit [facility] [address] [place] [address] Ashley Mendoza MD [address] [place] [address] documented as of this encounter Visit Diagnoses Not on filedocumented in this encounter Care Teams Icu Nurse Relationship Specialty Start Date End Date Ashley Mendoza MD [address] [place] [phone] PCP - General Family Medicine 10/04/15 documented as of this encounter
--- OUTSIDE RECORDS SUMMARY | 2024-05-27 13:49 | XMS_ITS | Encounter Summary ---
Author Organization [employer] Address [address] [place] [address] Care Team Providers Care Dye House Helper Name Role Phone Ashley Mendoza MD Primary Care Provider [phone] Reason for Visit * Reason Onset Date Comments kirsten recall 04/30/2024 Encounter Details Date Type Department Care Team ([facility] st Contact Info) Description 04/30/2024 Telephone [facility] [address] [place] [address] Hanny Rudolph MA may recall Social History Tobacco Use Types Packs/Day Years [...] encounter Miscellaneous Notes * Telephone Encounter - Hanny Rudolph MA - 04/30/2024 3:25 PM EST Pt doesn't have a working number ma send a letter in attempt to schedule pe for May documented in this encounter Plan of Treatment Upcoming Encounters Date Type Department Care Team (Late st Contact Info) Description 06/29/2024 10:15 AM EST Office Visit [facility] [address] [place] [address] Ashley Mendoza MD [address] [place] [address] documented as of this encounter Visit Diagnoses Not on filedocumented in this encounter Care Teams Dye House Helper Relationship Specialty Start Date End Date Ashley Mendoza MD [address] [place] [address] PCP - General Family Medicine 10/04/15 documented as of this encounter
== END 2024-05-27 11:48 | disposition home or self-care (01) ==
LOC: HO.HHCX 11:47
PROVIDERS: Visit Provider Emergency Medicine
DX: R05.2 Subacute cough (principal)
CPT/HCPCS: 71046

== ENCOUNTER → 2024-05-27 11:48 | Outpatient (BNV) | payer MEDICAID, SELFPAY | PROVIDERS: Visit Provider Radiology Diagnostic Radiology | DX: R05.2 Subacute cough (principal) | CPT/HCPCS: 71046 ==